=== PATIENT | female | born 1990 | race Caucasian/White ===

== ENCOUNTER 2025-06-08 03:21 | Emergency (ER) | payer MEDICAID ==
[~2025-06-08] VITALS: Ht 167.6 cm; Wt 64.0 kg
[2025-06-08 03:29] VITALS: O2SAT 98
[2025-06-08] MEDS ORDERED: QUET100T MT (03:48)
[2025-06-08] MEDS ORDERED: GABA-1180 MT (03:48)
[2025-06-08] MEDS ORDERED: DOXY100T28 MT (05:03)
[2025-06-08] MEDS ORDERED: METR-167 MT (05:03)
[2025-06-08] MEDS: CEFTRIAXONE SODIUM 500MG VIAL IM ONE (05:41)
[2025-06-08] MEDS: DOXYCYCLINE HYCLATE 100MG CAPSULE PO ONE (05:41)
[2025-06-08] MEDS ORDERED: SERT100T MT (05:42)
[2025-06-08 05:46] VITALS: BP 103/70; PULSE 86; RESP 16; TEMP 36.9; O2SAT 100
[2025-06-10 04:12] LABS: CHLAMYDIA TRACHOMATIS NAA Negative (Negative); NEISSERIA GONORRHOEAE NAA Negative (Negative)
== END 2025-06-08 05:50 | disposition home or self-care (01) ==
LOC: ER 03:21
DX: N76.0 Acute vaginitis (principal); B96.89 Other specified bacterial agents as the cause of diseases classified elsewhere; J45.909 Unspecified asthma, uncomplicated; Z76.0 Encounter for issue of repeat prescription; Z79.899 Other long term (current) drug therapy
CPT/HCPCS: 87491; 87591; 81025; 87210; 96372; 99284; J0696; Z7610